=== PATIENT | male | born 1995 | race Hispanic/Latino ===

== ENCOUNTER 2016-09-08 16:08 | Emergency (ER) | payer OTHER ==
[~2016-09-08] VITALS: Ht 170.2 cm; Wt 81.6 kg
[2016-09-08 16:09] VITALS: BP 158/71
[2016-09-08] MEDS ORDERED: CYCL10TA PO (17:10)
[2016-09-08] MEDS ORDERED: IBUP600T26 PO (17:10)
== END 2016-09-08 17:29 | disposition home or self-care (01) ==
LOC: M ED 17:07
DX: S39.012A Strain of muscle, fascia and tendon of lower back, initial encounter (principal); X50.9XXA Other and unspecified overexertion or strenuous movements or postures, initial encounter; Y92.9 Unspecified place or not applicable; Y93.9 Activity, unspecified; Y99.1 Military activity

== ENCOUNTER 2019-07-18 09:22 | Emergency (ER) | payer OTHER ==
[~2019-07-18] VITALS: Ht 172.7 cm; Wt 82.0 kg
[~2019-07-18 09:22] MED LIST: CYCL-707 PO; IBUP-1022 PO
[2019-07-18 09:23] VITALS: BP 121/57
[2019-07-18] MEDS ORDERED: VALT1TAB PO (09:40)
[2019-07-18] MEDS ORDERED: CLIN150C14 PO (09:40)
== END 2019-07-18 09:54 | disposition home or self-care (01) ==
LOC: M ED 09:22
DX: S00.522A Blister (nonthermal) of oral cavity, initial encounter (principal); X58.XXXA Exposure to other specified factors, initial encounter; Y92.9 Unspecified place or not applicable; K05.10 Chronic gingivitis, plaque induced

== ENCOUNTER 2019-07-31 11:18 | Emergency (ER) | payer OTHER ==
[~2019-07-31] VITALS: Ht 170.2 cm; Wt 82.2 kg
[2019-07-31 11:18] VITALS: BP 121/56
[~2019-07-31 11:18] MED LIST changes: +CLIN150C14 PO; +VALT1TAB PO
[2019-07-31] MEDS ORDERED: MAGICMW SSP (12:10)
== END 2019-07-31 12:20 | disposition home or self-care (01) ==
LOC: M ED 11:18
DX: K04.7 Periapical abscess without sinus (principal); Z79.899 Other long term (current) drug therapy

== ENCOUNTER 2019-08-15 19:55 | Emergency (ER) | payer OTHER ==
[~2019-08-15 19:55] MED LIST changes: +MAGICMW SSP
[2019-08-15] MEDS ORDERED: PERI0.126 PO (20:38)
[2019-08-15] MEDS ORDERED: AUGM875T28 PO (20:38)
[2019-08-15] MEDS ORDERED: LIDO2SO PO (20:39)
[2019-08-15] MEDS ORDERED: LIDOCAINE VISCOUS 2% SOLN 15ML UDC SSP ONE (20:45)
[2019-08-15 21:05] LABS: BASO % 0.5 % (0.0-1.0); EOS # 0.1 10^3/uL (0.0-0.5); EOS % 1.7 % (0.0-3.0); HEMATOCRIT 44.1 % (42.0-52.0); HEMOGLOBIN 15.4 g/dl (13.5-17.5); LYMPH # 2.6 10^3/uL (1.5-5.0); LYMPH % 33.6 % (24.0-44.0); MEAN CORPUSCULAR HGB CONC 34.9 g/dl (32.0-36.5); MEAN CORPUSCULAR VOLUME 88.7 fl (80.0-96.0); MONO # 0.6 10^3/uL (0.0-0.8); MONO % 7.3 % (0.0-5.0); NEUTROPHILS # 4.5 10^3/uL (1.5-8.5); NEUTROPHILS % 56.6 % (36.0-66.0); PLATELET COUNT, AUTOMATED 207 10^3/uL (150-450); RED BLOOD COUNT 4.97 10^6/uL (4.30-6.10); WHITE BLOOD COUNT 7.9 10^3/uL (4.0-10.0)
[2019-08-15 21:27] LABS: BLOOD UREA NITROGEN 34 MG/DL (7-18); CALCIUM LEVEL 8.8 MG/DL (8.5-10.1); CARBON DIOXIDE LEVEL 29 MEQ/L (21-32); CHLORIDE LEVEL 103 MEQ/L (98-107); CREATININE FOR GFR 1.08 MG/DL (0.70-1.30); GLOMERULAR FILTRATION RATE > 60.0 (>60); GLUCOSE, FASTING 97 MG/DL (70-100); POTASSIUM SERUM 4.2 MEQ/L (3.5-5.1); SODIUM LEVEL 138 MEQ/L (136-145)
[2019-08-15 21:42] VITALS: BP 129/57
== END 2019-08-15 21:44 | disposition home or self-care (01) ==
LOC: M ED 19:55
DX: K05.10 Chronic gingivitis, plaque induced (principal); K12.1 Other forms of stomatitis; E86.0 Dehydration; Z79.899 Other long term (current) drug therapy

== ENCOUNTER 2019-08-21 12:36 | Emergency (ER) | payer OTHER ==
[~2019-08-21] VITALS: Ht 172.7 cm; Wt 81.0 kg
[~2019-08-21 12:36] MED LIST changes: +AUGM875T28 PO; +LIDO2SO PO; +PERI0.126 PO
[2019-08-21 12:37] VITALS: BP 131/63
[2019-08-21] MEDS ORDERED: MULTCAP PO (12:47)
[2019-08-21] MEDS ORDERED: CETI10CA2 PO (13:24)
[2019-08-21] MEDS ORDERED: LIDO2SOL17 PO (13:24)
[2019-08-21] MEDS ORDERED: FLON1SPR NARES (13:24)
== END 2019-08-21 13:28 | disposition home or self-care (01) ==
LOC: M ED 12:36
DX: J30.89 Other allergic rhinitis (principal); K12.1 Other forms of stomatitis; Z79.899 Other long term (current) drug therapy

== ENCOUNTER 2019-10-05 21:20 | Emergency (ER) | payer OTHER ==
[~2019-10-05] VITALS: Ht 170.2 cm; Wt 82.2 kg
[~2019-10-05 21:20] MED LIST changes: +CETI10CA2 PO; +FLON1SPR NARES; +LIDO2SOL17 PO; +MULTCAP PO
[2019-10-05 22:25] LABS: BASO % 0.2 % (0.0-1.0); EOS # 0.1 10^3/uL (0.0-0.5); EOS % 0.8 % (0.0-3.0); HEMATOCRIT 42.7 % (42.0-52.0); HEMOGLOBIN 14.6 g/dl (13.5-17.5); LYMPH # 3.4 10^3/uL (1.5-5.0); LYMPH % 35.3 % (24.0-44.0); MEAN CORPUSCULAR HEMOGLOBIN 31.3 pg (27.0-33.0); MEAN CORPUSCULAR HGB CONC 34.2 g/dl (32.0-36.5); MEAN CORPUSCULAR VOLUME 91.4 fl (80.0-96.0); MONO # 0.6 10^3/uL (0.0-0.8); MONO % 6.4 % (0.0-5.0); NEUTROPHILS # 5.6 10^3/uL (1.5-8.5); NEUTROPHILS % 57.1 % (36.0-66.0); PLATELET COUNT, AUTOMATED 200 10^3/uL (150-450); RED BLOOD COUNT 4.67 10^6/uL (4.30-6.10); WHITE BLOOD COUNT 9.8 10^3/uL (4.0-10.0)
[2019-10-05 23:21] VITALS: BP 122/57
== END 2019-10-05 23:22 | disposition home or self-care (01) ==
LOC: M ED 21:20
DX: R59.0 Localized enlarged lymph nodes (principal)